=== PATIENT | male | born 1960 | race Caucasian/White ===

== ENCOUNTER 2019-01-01 08:25 | Inpatient (IN) | payer OTHER ==
[~2019-01-01] VITALS: Ht 177.8 cm; Wt 74.7 kg
[~2019-01-01 08:25] MED LIST: BP MED PO; CARV6.25 PO; CLON.1 PO; HYOS.125 SL; LISI20 PO; METH10 PO; OXYC5 PO; PROM25 PO; PROM25S PR; TIMDOROPSO
[2019-01-01 09:09] LABS: BASOPHILS ABSOLUTE AUTO 0.05 K/mm3 (0.00-0.23); BASOPHILS PERCENT AUTO 1 % (0-2); EOSINOPHILS PERCENT AUTO 0 % (0-6); Hematocrit 54.7 % (37.0-53.0); Hemoglobin 18.6 g/dL (13.5-17.5); IMMATURE GRAN ABSOLUTE AUTO 0.08 K/mm3 (0.00-0.10); IMMATURE GRAN PERCENT AUTO 1 % (0-1); LYMPHOCYTES ABSOLUTE AUTO 0.56 K/mm3 (0.84-5.20); LYMPHOCYTES PERCENT AUTO 8 % (21-46); MONOCYTES PERCENT AUTO 4 % (4-13); Mean Corpuscular HGB 31.2 pg (26.0-34.0); Mean Corpuscular Volume 92 fL (80-100); Mean Platelet Volume 10.4 fL (9.1-12.4); NEUTROPHILS ABSOLUTE AUTO 6.13 K/mm3 (1.96-9.15); NEUTROPHILS PERCENT AUTO 86 % (41-73); Platelet Count 264 K/mm3 (150-400); RDW Coefficient Variation 12.5 % (11.7-14.2); RDW Standard Deviation 42.1 fL (35.1-46.3); Red Blood Cell Count 5.97 M/mm3 (4.30-5.90); White Blood Cell Count 7.12 K/mm3 (4.00-11.30)
[2019-01-01 09:21] LABS: Alanine Aminotransfer (ALT/SGP 55 U/L (12-78); Albumin, Blood 4.5 g/dL (3.4-5.0); Albumin/Globulin Ratio 1.1 (0.8-1.8); Alk Phos 142 U/L (50-136); Anion Gap 22 mmol/L (6-16); Aspartate Aminotrans (AST/SGOT 20 U/L (12-37); Bilirubin, Total 0.4 mg/dL (0.1-1.0); Blood Urea Nitrogen 21 mg/dL (8-24); Bun/Creatinine Ratio 26.6 (12.0-20.0); CO2, Blood 12 mmol/L (21-32); Calcium, Blood 11.1 mg/dL (8.5-10.1); Chloride, Blood 96 mmol/L (98-108); Creatinine, Blood 0.79 mg/dL (0.60-1.20); Globulin, Blood 4.1 g/dL (2.2-4.0); Glomerular Filtration Rate >60 (60-); Glucose, Blood 430 mg/dL (70-99); Potassium, Blood 5.5 mmol/L (3.5-5.5); Sodium, Blood 130 mmol/L (136-145); Total Protein, Blood 8.6 g/dL (6.4-8.2)
[2019-01-01 10:29] LABS: Source, Urine Clean Catch
[2019-01-01 10:40] LABS: Bilirubin, Urine Neg (Neg); Blood, Urine 1+ (Neg); Glucose Qualitative, Urine 4+ (Neg); Ketones, Urine 4+ (Neg); Leukocyte Esterase, Urine Neg (Neg); Nitrite, Urine Neg (Neg); Protein, Urine 2+ (Neg); Specific Gravity, Urine 1.025 (1.003-1.022); Urobilinogen, Urine NORM (Normal)
[2019-01-01 10:49] LABS: Appearance, Urine Clear (Clear); Color, Urine Yellow (P-Yellow)
[2019-01-01 10:51] LABS: Bacteria Rare /hpf; Red Blood Cells, Urine 0-2 /hpf (0-2); Squamous Epithelial Cells Rare /hpf (Few); White Blood Cells, Urine 0-2 /hpf (0-5)
[2019-01-01] MEDS ORDERED: TESTOSTERONE CREAM (13:35)
[2019-01-01] MEDS ORDERED: Vitamin D2000 UNIT PO (13:35)
[2019-01-01] MEDS ORDERED: Novolog100 UNIT/2 SC (13:36)
[2019-01-01] MEDS ORDERED: INSDET100 SC (13:37)
--- NOTE | 2019-01-01 14:15 | NUR ---
PT ADMITTED PT IN STABLE. PT MEDICATED FOR PAIN & IS RESTING IN BED. ORIENTED TO ROOM. HR ELEVATED. WILL CONTINUE TO MONITOR.
[2019-01-01 15:38] LABS: Anion Gap 16 mmol/L (6-16); Blood Urea Nitrogen 23 mg/dL (8-24); Bun/Creatinine Ratio 33.6 (12.0-20.0); CO2, Blood 16 mmol/L (21-32); Chloride, Blood 99 mmol/L (98-108); Creatinine, Blood 0.68 mg/dL (0.60-1.20); Glomerular Filtration Rate >60 (60-); Glucose, Blood 412 mg/dL (70-99); Potassium, Blood 4.9 mmol/L (3.5-5.5); Sodium, Blood 131 mmol/L (136-145)
[2019-01-02 05:22] LABS: BASOPHILS ABSOLUTE AUTO 0.02 K/mm3 (0.00-0.23); BASOPHILS PERCENT AUTO 0 % (0-2); EOSINOPHILS ABSOLUTE AUTO 0.07 K/mm3 (0.00-0.68); EOSINOPHILS PERCENT AUTO 1 % (0-6); Hematocrit 37.5 % (37.0-53.0); Hemoglobin 13.2 g/dL (13.5-17.5); IMMATURE GRAN ABSOLUTE AUTO 0.02 K/mm3 (0.00-0.10); IMMATURE GRAN PERCENT AUTO 0 % (0-1); LYMPHOCYTES ABSOLUTE AUTO 1.18 K/mm3 (0.84-5.20); LYMPHOCYTES PERCENT AUTO 22 % (21-46); MONOCYTES ABSOLUTE AUTO 0.51 K/mm3 (0.16-1.47); MONOCYTES PERCENT AUTO 10 % (4-13); Mean Corpuscular HGB 31.1 pg (26.0-34.0); Mean Corpuscular HGB Conc 35.2 g/dL (31.5-36.5); Mean Platelet Volume 10.2 fL (9.1-12.4); NEUTROPHILS ABSOLUTE AUTO 3.57 K/mm3 (1.96-9.15); NEUTROPHILS PERCENT AUTO 66 % (41-73); Platelet Count 170 K/mm3 (150-400); RDW Coefficient Variation 12.6 % (11.7-14.2); RDW Standard Deviation 40.6 fL (35.1-46.3); Red Blood Cell Count 4.25 M/mm3 (4.30-5.90); White Blood Cell Count 5.37 K/mm3 (4.00-11.30)
[2019-01-02 05:23] LABS: Mean Corpuscular Volume 88 fL (80-100)
[2019-01-02 05:45] LABS: Magnesium, Blood 1.6 mg/dL (1.6-2.4)
[2019-01-02 05:48] LABS: Alanine Aminotransfer (ALT/SGP 31 U/L (12-78); Albumin/Globulin Ratio 1.2 (0.8-1.8); Alk Phos 79 U/L (50-136); Anion Gap 8 mmol/L (6-16); Aspartate Aminotrans (AST/SGOT 13 U/L (12-37); Bilirubin, Total 0.4 mg/dL (0.1-1.0); Blood Urea Nitrogen 19 mg/dL (8-24); Bun/Creatinine Ratio 34.1 (12.0-20.0); CO2, Blood 20 mmol/L (21-32); Calcium, Blood 8.2 mg/dL (8.5-10.1); Chloride, Blood 106 mmol/L (98-108); Creatinine, Blood 0.56 mg/dL (0.60-1.20); Globulin, Blood 2.5 g/dL (2.2-4.0); Glomerular Filtration Rate >60 (60-); Glucose, Blood 273 mg/dL (70-99); Potassium, Blood 3.7 mmol/L (3.5-5.5); Sodium, Blood 134 mmol/L (136-145)
[2019-01-02 06:06] LABS: Total Protein, Blood 5.5 g/dL (6.4-8.2)
--- NOTE | 2019-01-02 06:26 | NUR ---
SHIFT SUMMARY: PATIENT AOX3 PLEASANT AND COOPERATIVE. HAS HAD ABDOMINAL PAIN OFF AND ON THROUGHOUT THE NIGHT, MEDICATED PER EMAR WITH 0.5MG OF DILAUDID ON REQUEST, GOT 3 DOSAGES LAST NIGHT. HE CONTINUED TO HAVE FLUID INTAKE THROUGHOUT THE NIGHT MOSTLY BROTH DRINKS. STATES HE DOES NOT LIKE IT WHEN HE HAS HIS PANCREATIC ATTACKS, THIS HAS BEEN MORE THEN ONE FOR HIM. DENIED ANY OTHER CONCERNS OR COMPLAINTS THIS NOC SHIFT. HE SLEPT MOST OF THE NIGHT AFTER TAKING A SHOWER INDEPENDANTLY. ONLY WOKE WHEN PAIN WOKE HIM. FLUIDS CONTINUED VIA IV WELL. GOOD FLUID INTAKE ALL NIGHT. BUT ONLY VOIDED X2 THIS SHIFT, UNCOUNTED. WILL REPORT TO ONCOMING SHIFT.
[2019-01-02 13:00] LABS: CHOL/HDL RATIO 3.6; Cholesterol 129 mg/dL (50-200); HDL Cholesterol 36 mg/dL (>39); LDL/HDL RATIO 2.2; Low Density Lipoprotein Chol 80 mg/dL (0-110); Triglycerides 66 mg/dL (30-160); Very Low Density Lipoprot Chol 13 mg/dL (6-32)
--- NOTE | 2019-01-02 18:27 | NUR ---
SHIFT SUMMARY PT AXO, PLEASANT AND COOPERATIVE WITH CARE. PT HAS BEEN DRINKING BEEF BROTH THOUGHOUT THE DAY. TOLERATING CLEAR LIQUID DIET. CBG'S TODAY WERE 276, 342 AND 306. MEDICATED PER EMAR. DOSAGE OF DILAUDID INCREASED FOR BETTER COVERAGE PER DR MALDONADO. IV PATENT AND INFUSING PER EMAR. CIWA NEGATIVE THIS SHIFT. BED IN LOW POSITION, CALL LIGHT WITHIN REACH. PT UP AD JORGE L. PT VOIDING FREQUENTLY INDEPENDENTLY.
[2019-01-03 05:21] LABS: BASOPHILS ABSOLUTE AUTO 0.02 K/mm3 (0.00-0.23); BASOPHILS PERCENT AUTO 1 % (0-2); EOSINOPHILS ABSOLUTE AUTO 0.04 K/mm3 (0.00-0.68); EOSINOPHILS PERCENT AUTO 1 % (0-6); Hemoglobin 11.1 g/dL (13.5-17.5); IMMATURE GRAN PERCENT AUTO 0 % (0-1); LYMPHOCYTES ABSOLUTE AUTO 1.07 K/mm3 (0.84-5.20); LYMPHOCYTES PERCENT AUTO 35 % (21-46); MONOCYTES ABSOLUTE AUTO 0.32 K/mm3 (0.16-1.47); MONOCYTES PERCENT AUTO 10 % (4-13); Mean Corpuscular HGB 31.5 pg (26.0-34.0); Mean Corpuscular HGB Conc 34.7 g/dL (31.5-36.5); Mean Platelet Volume 9.9 fL (9.1-12.4); NEUTROPHILS ABSOLUTE AUTO 1.63 K/mm3 (1.96-9.15); NEUTROPHILS PERCENT AUTO 53 % (41-73); Platelet Count 102 K/mm3 (150-400); RDW Coefficient Variation 13.1 % (11.7-14.2); RDW Standard Deviation 43.3 fL (35.1-46.3); Red Blood Cell Count 3.52 M/mm3 (4.30-5.90); White Blood Cell Count 3.08 K/mm3 (4.00-11.30)
[2019-01-03 05:23] LABS: Mean Corpuscular Volume 91 fL (80-100)
[2019-01-03 05:45] LABS: Albumin, Blood 2.6 g/dL (3.4-5.0); Anion Gap 6 mmol/L (6-16); Blood Urea Nitrogen 12 mg/dL (8-24); Bun/Creatinine Ratio 24.5 (12.0-20.0); CO2, Blood 22 mmol/L (21-32); Calcium, Blood 7.1 mg/dL (8.5-10.1); Chloride, Blood 112 mmol/L (98-108); Creatinine, Blood 0.49 mg/dL (0.60-1.20); Glomerular Filtration Rate >60 (60-); Glucose, Blood 102 mg/dL (70-99); Phosphorus, Blood 2.1 mg/dL (2.5-4.9); Potassium, Blood 3.5 mmol/L (3.5-5.5); Sodium, Blood 140 mmol/L (136-145)
--- NOTE | 2019-01-03 06:17 | NUR ---
SHIFT SUMMARY: SOPHIA HAS BEEN PLEASANT AND COOPERATIVE THROUGHOUT THE SHIFT. PAIN HAS BEEN OFF AND ON, WITH SPIKES UP TO 8 BUT DILAUDID 1MG TAKES IT DOWN TO 4 AND HE CAN REST FOR A SHORT PERIOD OF TIME. HE HAS BEEN TAKING IN CLEAR LIQUIDS THROUGHOUT THE NIGHT LARGE AMOUNTS. AND TOLERATING THEM WELL. HE WOULD LIKE HIS DIET INCREASED AND HOPE HE CAN GO HOME TODAY. OVERALL HE HAD A VERY UN-EVENTFUL NIGHT WITH NO CHANGES. WILL REPORT TO DAY SHIFT RN.
[2019-01-03] MEDS ORDERED: Ultram50 MG PO (12:05)
--- NOTE | 2019-01-03 13:41 | NUR ---
DISCHARGE SUMMARY PT DISCHARGED TO HOME. PT LEFT ROOM AT ABOUT 1300 WITH NURSE ESCORT VIA WHEELCHAIR. IV DC'D AND BELONGINGS RETURNED. PT EDUCATED ON NEW MEDICATIONS, ADA DIET, INSTRUCTED TO SLIVER CUTTER MEDS FROM PHARMACY AND TO FOLLOW UP WITH PCP. NURSE MADE AN APPOINTMENT FOR DR MI FOR 01/05 AT 1300. EVENT DECORATOR INSTRUCTED NURSE TO HAVE PATIENT CALL HER TO ANSWER SOME QUESTIONS. NURSE GAVE PATIENT THE PHONE NUMBER. PT AGREED AND CALLED RIGHT AWAY AND LEFT MESSAGE. DISCHARGE SUMMARY FAXED WELL.
== END 2019-01-03 13:16 | disposition home or self-care (01) | DRG 438 ==
LOC: ER 08:25 → MEDS 10:53 → ENPENDDIS 01-03 10:50 → MEDS 01-03 13:16
PROVIDERS: Emergency Medicine; Family Medicine; ADMIT Internal Medicine
DX: K85.20 Alcohol induced acute pancreatitis without necrosis or infection (principal); E11.10 Type 2 diabetes mellitus with ketoacidosis without coma; D61.818 Other pancytopenia; Z79.4 Long term (current) use of insulin; E83.51 Hypocalcemia; Z87.891 Personal history of nicotine dependence; E86.0 Dehydration; F10.10 Alcohol abuse, uncomplicated; K21.9 Gastro-esophageal reflux disease without esophagitis; K70.30 Alcoholic cirrhosis of liver without ascites; E83.39 Other disorders of phosphorus metabolism
CPT/HCPCS: 36415; 80048; 80053; 80061; 80069; 81001; 82947; 83036; 83690; 83735; 85025; 96361; 96372-59; 96374; 96375; 96376; 99285-25; J1170; J1650; J2405; J7030; J7120